=== PATIENT | male | born 1990 | race Hispanic/Latino ===

== ENCOUNTER 2018-09-08 08:46 | Emergency (ER) | payer SELFPAY ==
[~2018-09-08] VITALS: Ht 180.3 cm; Wt 81.6 kg
--- OUTSIDE RECORDS SUMMARY | 2018-09-08 08:49 | XMS REPORT | Continuity of Care Document ---
Author Author [facility] Interface Address Unknown Phone Unavailable Problems Problem Status Onset Date Classification Date Reported Comments Source Influenza-like symptoms 09/18/2017 Diagnosis 09/18/2017 [facility] Cough 09/18/2017 Diagnosis 09/18/2017 [facility] Sore throat symptom 09/18/2017 Diagnosis 09/18/2017 [facility] Feeling feverish 09/18/2017 Diagnosis 09/18/2017 [facility] Acute otitis externa 09/18/2017 Diagnosis 09/18/2017 [facility] Medications Medication Details Route Status Patient Instructions Ordering Provider Order Date Source benzonatate 200 MG Oral Capsule benzonatate 200 mg capsule Take 1 capsule 3 times a day by oral route as needed. Active [facility] Brompheniramine Maleate 0.4 MG/ML / Dextromethorphan Hydrobromide 2 MG/ML / Pseudoephedrine Hydrochloride 6 MG/ML Oral Solution [Bromfed DM] Bromfed DM 2 mg-30 mg-10 mg/5 mL syrup Take 10 mL every 4 hours by oral route as needed. Active [facility] Hydrocortisone 10 MG/ML / Neomycin 3.5 MG/ML / Polymyxin B 75799 UNT/ML Otic Suspension xooqpnwc-stksgmwot-nuuksostf 3.5 mg-10,000 unit/mL-1 % ear drops,susp INSTILL 4 DROPS INTO AFFECTED EAR(S) BY OTIC ROUTE 3 TIMES PER DAY X 7 Days Active [facility] Oseltamivir 75 MG Oral Capsule oseltamivir 75 mg capsule Take 1 capsule twice a day by oral route with meals for 5 days. Active [facility] Allergies, Adverse Reactions, Alerts Substance Category Reaction Severity Reaction type Status Date Reported Comments Source Immunizations Immunization Date Given Site Status Last Updated Comments Source Results Order Name Results Value Reference Range Date Interpretation Comments Source Influenza A negative 09/18/2017 [facility] Influenza B negative 09/18/2017 [facility] RESULT negative 09/18/2017 [facility] SWAB LOCATION Left and Right tonsillar pillars 09/18/2017 [facility] Vital Signs Vital Sign Value Date Comments Source Diastolic (mm Hg) 74 09/18/2017 [facility] Height 70 09/18/2017 [facility] Systolic (mm Hg) 116 09/18/2017 [facility] Weight 202 09/18/2017 [facility] Encounters Location Location Details Encounter Type Encounter Number Reason For Visit Attending Provider ADM Date DC Date Status Source [place] - [facility] - [id number] Maylin Erazo, [facility]: [address], [place] [address], Ph. [id number] Maylin Erazo 09/18/2017 [facility] Procedures Procedure Code Date Perfomer Comments Source
--- OUTSIDE RECORDS SUMMARY | 2018-09-08 08:49 | XMS REPORT | Encounter Summary ---
Author Organization Unknown Address [address] [place] [id number] Phone [phone] Reason for Visit Medical Complaint Instructions 1. Influenza-like symptoms influenza (flu): care instructions oseltamivir 75 mg capsule 2. Cough cough: care instructions benzonatate 200 mg capsule Bromfed DM 2 mg-30 mg-10 mg/5 mL syrup 3. Sore throat symptom sore throat: care instructions rapid strep group A, throat 4. Feeling feverish rapid flu (A+B) 5. Acute otitis externa qiamllbj-aamhsusmz-dikgedoao 3.5 mg-10,000 unit/mL-1 % ear drops,susp Discussion Note Pt is aaox3 and in NAD; verbalizes understanding of all instructions and has no further questions at this time Plan of Care Patient Instructions Take medications as prescribed and discussed; follow up with your PCP within 2-3 days or sooner should symptoms worsen. Go to the ER if you experience shortness of breath or difficulty breathing despite using medications prescribed today. Reminders Provider Appointments None recorded. Lab Rapid Strep Group a, Throat 09/18/2017 [facility] Rapid Flu (A+B) 09/18/2017 [facility] Referral None recorded. Procedures None recorded. Surgeries None recorded. Imaging None recorded. Medications Name Start Date benzonatate 200 mg capsule Take 1 capsule 3 times a day by oral route as needed. Bromfed DM 2 mg-30 mg-10 mg/5 mL syrup Take 10 mL every 4 hours by oral route as needed. khbmbhcm-ubngyvhll-wxqezcxjs 3.5 mg-10,000 unit/mL-1 % ear drops,susp INSTILL 4 DROPS INTO AFFECTED EAR(S) BY OTIC ROUTE 3 TIMES PER DAY X 7 Days oseltamivir 75 mg capsule Take 1 capsule twice a day by oral route with meals for 5 days. Medications Administered None recorded. Vitals Height Weight BMI Blood Pressure 5 ft 10 in 202 lbs 29 kg/m2 116/74 mm[Hg] Lab Results Date Name Specimen Result Interpretation Description Value Range Status Address Rapid Flu (A+B) Influenza a negative [facility]: [facility] Influenza B negative [facility]: [facility] Rapid Strep Group a, Throat Result negative [facility]: [facility] Swab Location Left and Right tonsillar pillars [facility]: [address] [place] [address] Allergies Code Code System Name Reaction Severity Status Onset NKDA Problems No Known Problems Procedures None recorded. Vaccine List None recorded. Social History Smoking Status Never Smoker Past Encounters 09/18/2017 Influenza-like Symptoms; Cough; Sore Throat Symptom; Feeling Feverish; Acute Otitis Externa [facility]: [address] [place] [address], Ph. History of Present Illness Cidcq-Mqjzdkydem-Ivrbfko Reported By: Patient HPI: Location: head/sinuses, throat. Quality: sore throat, nasal/sinus congestion, dry cough. Duration: 2days. Severity: mild. Onset/Timing: sudden. Context: no sick contacts, no foreign travel, non-smoker. Modifying factors: OTC medication. Associated Symptoms: no sputum production, no shortness of breath, no wheezing, no change in number of pillows needed to sleep at night, no sweats, no significant weight gain, no significant weight loss, no vomiting, no diarrhea, no rash, no nausea, no fever, morning cough, sore throat, fever, muscle aches, headache; left ear earache Review of Systems:ROS as noted in the HPI Review of Systems Basic Reported By: Patient Physical Exam Adult Basic, Adult Female Complete, Adult Male Complete Reported By: Patient Constitutional: General Appearance: healthy-appearing, well-nourished, well-developed. Level of Distress: NAD Psychiatric: Mental Status: active and alert. Orientation: to time, to place, to person Npt-Xpvg-Hikys-Throat: Ears: no lesions on external ear, no outer ear tenderness, TMs clear, EAC ceruminous. Hearing: no hearing loss. Nose: no lesions on external nose, nares patent, no septal deviation, nasal passages clear, no sinus tenderness, post nasal drip. Lips, Teeth, and Gums: no mouth or lip ulcers, no bleeding gums, normal dentition. Oropharynx: moist mucous membranes, no erythema, no exudates, tonsils not enlarged Neck: Neck: FROM. Lymph Nodes: no cervical LAD, no supraclavicular LAD Lungs: Respiratory effort: no dyspnea, no tachypnea, no use of accessory muscles, no intercostal retractions. Auscultation: breath sounds normal Cardiovascular: Heart Auscultation: RRR, no murmurs. Neck vessels: no carotid bruits. Pulses including femoral / pedal: normal throughout Neurologic: Gait and Station: normal gait, normal station
[2018-09-08] MEDS ORDERED: KETOROLAC TROMETHAMINE 60 MG/2 ML VIAL IM ONE (09:00)
[2018-09-08] MEDS ORDERED: ACETAMINOPHEN 325 MG TAB PO ONE ×2 (09:00→10:00)
--- NOTE | 2018-09-08 10:32 | Diagnostic Imaging Report ---
EXAMINATION: Chest PA and lateral views INDICATION: Chest pain and fever. ^[id number] ^[id number] COMPARISON: None FINDINGS: TUBES and LINES: None. LUNGS: Mild patchy density in the left lung base without corresponding abnormality on the lateral view may represent atelectasis versus less likely developing pneumonia in the proper clinical setting. PLEURA: No pleural effusion or pneumothorax. HEART AND MEDIASTINUM: The cardiomediastinal silhouette is unremarkable. BONES AND SOFT TISSUES: No acute osseous lesion. Soft tissues are unremarkable. UPPER ABDOMEN: No free air under the diaphragm. IMPRESSION: Mild left basilar atelectasis versus developing pneumonia. Signed by: Dr. Alexandre Richter M.D. on 09/08/2018 10:29 AM
[2018-09-08 11:49] VITALS: BP 118/60
[2018-09-08] MEDS ORDERED: CEFTRIAXONE SOD 2 GM/NS 100 ML 100 ML IV ONE (12:00)
[2018-09-08] MEDS ORDERED: AZITHROMYCIN 250 MG TAB PO ONE (12:00)
== END 2018-09-08 11:50 | disposition home or self-care (01) ==
LOC: FSED 08:46
DX: R05 Cough (principal); R50.9 Fever, unspecified; J18.0 Bronchopneumonia, unspecified organism
CPT/HCPCS: 71046; 87400; 99283; J0696; J1885

== ENCOUNTER 2021-06-26 08:53 | Emergency (ER) | payer SELFPAY ==
[~2021-06-26] VITALS: Ht 177.8 cm; Wt 95.9 kg
[2021-06-26] MEDS ORDERED: KETOROLAC TROMETHAMINE 30 MG/ML VIAL IV STA (09:57)
[2021-06-26] MEDS ORDERED: SODIUM CHLORIDE 0.9% 1000ML 1,000 ML IV STA (09:57)
[2021-06-26] MEDS ORDERED: ONDANSETRON HCL INJ 2MG/ML 2ML 2 MG/ML VIAL IV STA (09:57)
[2021-06-26] MEDS ORDERED: SODIUM CHLORIDE 0.9% 1000ML 1,000 ML ONE (10:10)
[2021-06-26] MEDS ORDERED: IOPAMIDOL 370 MG/ML 200 ML INFUS..BTL INJ ONE (10:29)
[2021-06-26] MEDS ORDERED: SODIUM CHLORIDE 0.9% 50ML 50 ML ONE (10:29)
== END 2021-06-26 12:23 | disposition home or self-care (01) ==
LOC: FSED 08:56
DX: R07.89 Other chest pain (principal); R00.0 Tachycardia, unspecified; K92.0 Hematemesis; R51.9 Headache, unspecified
CPT/HCPCS: 71260; 80053; 82553; 83880; 84484; 85025; 85379; 93005; 96374; 96375; 99284; J1885; J2405; J7030; Q9967